=== PATIENT | female | born 1955 | race Caucasian/White ===

== ENCOUNTER 2019-03-04 12:41 | Emergency (ER) | payer BC ==
[~2019-03-04] VITALS: Ht 149.9 cm; Wt 76.7 kg
[2019-03-04 13:29] VITALS: Ht 149.9 cm; Wt 76.7 kg
[2019-03-04 14:03] LABS: microscopic required? NO
[2019-03-04 14:14] LABS: BASOPHIL % 1.1 % (0-2); PLATELET COUNT 266 x10^3mcL (130-400)
[2019-03-04 14:16] LABS: urine erythrocyte NEGATIVE (NEGATIVE)
[2019-03-04 14:33] LABS: RED CELL DISTRIBUTION WIDTH 14.8 % (11.5-14.5)
[2019-03-04 14:48] LABS: CALCIUM 8.6 mg/dL (8.5-10.1); CARBON DIOXIDE 27.3 mmol/L (21-32); CHLORIDE SERUM 109 mmol/L (98-107); CREATININE SERUM 0.6 mg/dL (0.6-1.0); GFR1 > 60 mL/min; GLUCOSE SERUM 97 mg/dL (74-106); POTASSIUM SERUM 3.9 mmol/L (3.5-5.1); SODIUM SERUM 146 mmol/L (136-145)
[2019-03-04 14:50] LABS: ALBUMIN 3.6 g/dL (3.4-5.0); ALKALINE PHOSPHATASE 77 U/L (46-116); ALT/SGPT 53 U/L (14-59); AST/SGOT 30 U/L (15-37); BILIRUBIN DIRECT 0.07 mg/dL (0.0-0.2); BILIRUBIN TOTAL 0.3 mg/dL (0.20-1.00); LIPASE 132 IU/L (73-393); TOTAL PROTEIN, SERUM 7.1 g/dL (6.4-8.2)
[2019-03-04 16:30] VITALS: BP 148/71
== END 2019-03-04 16:30 | disposition home or self-care (01) ==
LOC: ED 12:41
PROVIDERS: Student in an Organized Health Care Education/Training Program
DX: R10.812 Left upper quadrant abdominal tenderness (principal); R11.0 Nausea; Z90.49 Acquired absence of other specified parts of digestive tract
CPT/HCPCS: J2270; J2405; J7030

== ENCOUNTER 2020-01-12 20:14 | Emergency (ER) | payer OTHER, SELFPAY ==
[~2020-01-12] VITALS: Ht 154.9 cm; Wt 64.9 kg
[2020-01-12 20:18] VITALS: Ht 154.9 cm; Wt 64.9 kg
[2020-01-12 22:21] LABS: BASOPHIL % 0.4 % (0-2); PLATELET COUNT 208 x10^3mcL (130-400); RED CELL DISTRIBUTION WIDTH 13.3 % (11.5-14.5)
[2020-01-12 22:33] LABS: CALCIUM 8.4 mg/dL (8.5-10.1); CARBON DIOXIDE 25.4 mmol/L (21-32); CHLORIDE SERUM 103 mmol/L (98-107); CREATININE SERUM 0.7 mg/dL (0.6-1.0); GFR1 > 60 mL/min; GLUCOSE SERUM 123 mg/dL (74-106); POTASSIUM SERUM 3.7 mmol/L (3.5-5.1); SODIUM SERUM 139 mmol/L (136-145)
[2020-01-12 22:40] LABS: ALKALINE PHOSPHATASE 76 U/L (46-116); ALT/SGPT 52 U/L (14-59); AST/SGOT 53 U/L (15-37); BILIRUBIN TOTAL 0.3 mg/dL (0.20-1.00); TOTAL PROTEIN, SERUM 7.3 g/dL (6.4-8.2)
[2020-01-12 22:43] LABS: ALBUMIN 3.1 g/dL (3.4-5.0)
[2020-01-12 23:51] VITALS: BP 120/56
== END 2020-01-12 23:51 | disposition home or self-care (01) ==
LOC: ED 20:14
PROVIDERS: Emergency Medicine
DX: U07.1 COVID-19 (principal); J12.89 Other viral pneumonia; Z90.49 Acquired absence of other specified parts of digestive tract
CPT/HCPCS: 83880; Q0092; U0003-CS

== ENCOUNTER 2020-01-16 15:30 | Inpatient (IN) | payer OTHER, SELFPAY ==
[~2020-01-16] VITALS: Ht 157.5 cm; Wt 70.1 kg
--- NOTE | 2020-01-16 15:54 | NUR ---
FLO IN BY AMBULANCE,,STATED SON POSITIVE LOMBARDO VIRUS,WAS HERE ON 01/11,TESTED FOR LOMBARDO ,RESULT POSITIVE, C/O SOB ,COUGH YELLOWISH SECRETIONS, NAUSEA,
[2020-01-16 17:27] LABS: CALCIUM 8.3 mg/dL (8.5-10.1); CARBON DIOXIDE 29.6 mmol/L (21-32); CHLORIDE SERUM 102 mmol/L (98-107); CREATININE SERUM 0.8 mg/dL (0.6-1.0); GFR1 > 60 mL/min; GLUCOSE SERUM 95 mg/dL (74-106); POTASSIUM SERUM 3.5 mmol/L (3.5-5.1); SODIUM SERUM 139 mmol/L (136-145)
[2020-01-16 17:39] LABS: ALKALINE PHOSPHATASE 68 U/L (46-116); ALT/SGPT 60 U/L (14-59); AST/SGOT 62 U/L (15-37); BILIRUBIN TOTAL 0.4 mg/dL (0.20-1.00); C REACTIVE PROTEIN 11.6 mg/dL (<=0.9); LACTIC DEHYDROGENASE (LDH) 552 U/L (100-190)
[2020-01-16 17:43] LABS: ALBUMIN 2.5 g/dL (3.4-5.0)
[2020-01-16 17:56] LABS: BASOPHIL % 0.1 % (0-2); PLATELET COUNT 326 x10^3mcL (130-400); RED CELL DISTRIBUTION WIDTH 12.4 % (11.5-14.5)
--- NOTE | 2020-01-16 18:00 | NUR ---
PT AWAKE, ALERT, RESP E/U. PT CONTINUES TO COMPLAIN THAT SHE FEELS TIRED.
[2020-01-16 18:52] LABS: FREE T4 1.67 ng/dL (0.76-1.46); FREE THYROXINE INDEX 3.8 ug/dL (1.4-4.5); T3 TOTAL 1.08 ng/mL; T4(THYROXINE) 10.5 ug/dL (4.7-13.3)
--- NOTE | 2020-01-16 19:00 | NUR ---
RECEIVED PT FROM ED VIA AMBROSE, CAME IN DUE TO SOB, HEADACHE AND DECREASED APPETITE. AAOX4. C/O 01/26 HEADACHE. DENIES DIZZINESS. ABLE TO FOLLOW COMMANDS. SOB NOTED, O2 SAT=93% ON 4LPM/NC. STATED THAT SHE HAS PRODUCTIVE COUGH, ABLE TO EXPECTORATE WHITE PHLEGM IN LARGE AMOUNT. DENIES ABDOMINAL PAIN/NAUSEA/ VOMITING. STATED THAT HER LAST BM WAS ON 01/12/20. HAS DECREASED APPETITE SINCE MONDAY. VOIDS. IV SITE PATENT AND INTACT. AMBULATORY. ENDORSED TO INCOMING NURSE HAQ FOR CONTINUITY OF CARE
--- NOTE | 2020-01-16 19:05 | NUR ---
PT RECEIVED REPORT FOR PT FROM KEON BYRD. ENDORSED ALL CARE TO ART BYRD.
[2020-01-16 19:07] LABS: MAGNESIUM 2.2 mg/dL (1.8-2.4); PHOSPHOROUS 3.7 mg/dL (2.5-4.9)
[2020-01-16 19:08] LABS: CHOLESTEROL/HDL RATIO 3.5
[2020-01-16 19:10] VITALS: BP 123/67
[2020-01-16 19:25] VITALS: Ht 157.5 cm; Wt 70.1 kg
[2020-01-16 20:20] VITALS: BP 111/68
[2020-01-16 20:57] VITALS: BP 125/68
[2020-01-17 00:25] LABS: UA SPECIFIC GRAVITY 1.025 (1.005-1.035); microscopic required? YES; urine erythrocyte NEGATIVE (NEGATIVE)
[2020-01-17 05:26] VITALS: BP 132/64
--- NOTE | 2020-01-17 06:14 | NUR ---
PT HAD A RESTFUL NIGHT NO CHANGE AT THIS TIME,CALL LIGHT EASY REACHED,PT STILL ON 4L N/C SAT 92%,NO SOB,CALL LIGHT EASY REACHED AND WILL CONTINUR TO MONITOR.
[2020-01-17 06:48] LABS: BASOPHIL % 0.1 % (0-2); PLATELET COUNT 307 x10^3mcL (130-400); RED CELL DISTRIBUTION WIDTH 12.7 % (11.5-14.5)
--- NOTE | 2020-01-17 07:00 | NUR ---
RECEIVED PT FROM NIGHT RN. AAOX4, SPEECH CLEAR. DENIES KNIGHT/DIZZINESS. PRIMARILY BRUNEIAN SPEAKING. RES E/U, NO RESPIRATORY DISTRESS NOTED. DENIES SOB ON 4LPM NC. TELE MONITOR 31 SHOWING SR, DENIES CP/PRESSURE. PERIPHERAL PULSES PALPABLE W NO EDEMA NOTED. ABDOMEN SOFT. NO GI/ COMPLAINT. PT VOIDS IN BATHROOM WITHOUTH DIFFICULTY. AMBULATORY AT BASELINE. IV SITE TO SL, W NO S/S OF INFILTRATION NOTED. BED IN LOWEST POSITION, CALL LIGHT WITHIN REACH.
[2020-01-17 07:15] LABS: C REACTIVE PROTEIN 10.8 mg/dL (<=0.9); CALCIUM 8.2 mg/dL (8.5-10.1); CARBON DIOXIDE 27.1 mmol/L (21-32); CHLORIDE SERUM 105 mmol/L (98-107); CREATININE SERUM 0.6 mg/dL (0.6-1.0); GFR1 > 60 mL/min; GLUCOSE SERUM 92 mg/dL (74-106); MAGNESIUM 2.1 mg/dL (1.8-2.4); PHOSPHOROUS 3.3 mg/dL (2.5-4.9); POTASSIUM SERUM 3.8 mmol/L (3.5-5.1); SODIUM SERUM 140 mmol/L (136-145)
[2020-01-17 08:53] VITALS: BP 104/52
[2020-01-17 09:42] LABS: ERYTHROCYTE SED RATE 92 mm/hr (0-30)
[2020-01-17 11:33] VITALS: BP 124/69
--- NOTE | 2020-01-17 13:39 | NUR ---
PAINT MIXER HAND REPORTS PT'S O2 DESATTED TO 85%, COMPLAINING OF SOB AND DIZZINESS. PAINT MIXER HAND ASSISTED PT BACK IN BED. O2 SAT 92% ON 4LPM NC. ALSO, A BSC WAS PLACED AT BEDSIDE.
[2020-01-17 16:35] VITALS: BP 145/73
--- NOTE | 2020-01-17 18:51 | NUR ---
PT RESTING IN BED WITHOUT APPARENT DISTRESS. SEMI COSME'S POSITION. NO SIGNIFICANT CHANGES NOTED. PT DENIES SOB AND DIZZINESS AT THIS TIME. WILL ENDORSE CARE TO NEXT SHIFT.
--- NOTE | 2020-01-17 20:00 | NUR ---
RECEIVED PT FROM AM NURSE. PT AA/O X 4 ABLE TO MAKE NEEDS KNOWN, DENIES HEADACHE/ DENIES DIZZINESS, NO FACIAL DROOP. TELE MONITOR #31, NSR, HR @ 61 BPM. DENIES CHEST PAIN/ CHEST PRESSURE. PULSES PALPABLE, NO EDEMA. LUNG SOUNDS DIMINISHED BLL. PT ON OXYGEN, 4 LPM VIA NC, O2 SAT 90-91%. DENIES SOB, RESPIRATIONS EVEN AND UNLABORED. ACTIVE BS X 4 QUADS, ABD SOFT AND NON DISTENDED, NON TENDER. DENIES N/V/D. VOIDS FREELY. PT AMBULATORY, ABLE TO MOVE ALL EXTREMITIES. SKIN INTACT. DENIES PAIN AT THIS TIME. IV SITE TO RH INTACT, NO ERYTHEMA, NO INFILTRATION, SL. NO CONCERNS AT THIS TIME. CALL LIGHT WITHIN REACH, WILL CONTINUE TO MONITOR.
[2020-01-17 21:27] VITALS: BP 135/54
--- NOTE | 2020-01-18 00:17 | NUR ---
PT IN BED RESTING WITH EYES CLOSED, BUT EASILY AROUSABLE. ALL IV ANTIBIOTICS GIVEN ORDERED. RESPIRATIONS EVEN AND UNLABORED, NO RESPIRATORY DISTRESS. DENIES PAIN AT THIS TIME. DROPLET/ CONTACT PRECAUTIONS IN PLACE. NO ACUTE DISTRESS AT THIS TIME. CALL BUTTON WITHIN REACH, WILL CONTINUE TO MONITOR.
--- NOTE | 2020-01-18 05:19 | NUR ---
PT SLEPT IN INTERVALS THROUGHOUT THE NIGHT, BUT EASILY AROUSABLE. RESPIRATIONS E/U, NO RESPIRATORY DISTRESS AT THIS TIME. NO ACUTE CHANGES OVERNIGHT. PT RESTING IN BED AT THIS TIME, WILL ENDORSE CARE TO AM NURSE.
[2020-01-18 05:48] VITALS: BP 136/63
--- NOTE | 2020-01-18 07:05 | NUR ---
RECEIVED PT FROM NIGHT RN. PT RESTING IN BED, AAOX4. DENIES KNIGHT/DIZZINESS. SPEECH CLEAR. TELE MONITOR 31, SHOWING SR. HR IN 50'S, DENIES CP/PRESSURE. RES E/U, NO RESPIRATORY DISTRESS NOTED. ON 4 LPM NC. DENIES SOB. ABDOMEN SOFT. DENIES N/V/D/C. VOIDS WITHOUT DIFFICULT. NO GI/ COMPLAINT. PERIPHERAL PULSES PALPABLE W NO EDEMA NOTED. IV SITE TO , SL W NO S/S OF INFILTRATION NOTED. BED IN LOWEST POSITION, CALL LIGHT WITHIN REACH. WILL CONTINUE TO MONITOR.
[2020-01-18 08:40] LABS: C REACTIVE PROTEIN 7.5 mg/dL (<=0.9); CALCIUM 8.5 mg/dL (8.5-10.1); CARBON DIOXIDE 27.5 mmol/L (21-32); CHLORIDE SERUM 103 mmol/L (98-107); CREATININE SERUM 0.7 mg/dL (0.6-1.0); GFR1 > 60 mL/min; GLUCOSE SERUM 116 mg/dL (74-106); MAGNESIUM 2.2 mg/dL (1.8-2.4); PHOSPHOROUS 3.6 mg/dL (2.5-4.9); POTASSIUM SERUM 3.6 mmol/L (3.5-5.1); SODIUM SERUM 139 mmol/L (136-145)
[2020-01-18 08:48] VITALS: BP 115/67
--- NOTE | 2020-01-18 09:12 | NUR ---
PT C/O PAIN, GIVEN NORCO PER EMAR
--- NOTE | 2020-01-18 09:30 | NUR ---
AT 0800 - FILL TECHNICIAN REPORTS THAT O2 SAT SUSTAINING AT 85-89% AND RT INCREASED O2 TO 6 LPM NC. AT 0930 - EDUCATED PT LAYING SUPINE AND NOT MOVING THROUGHOUT THE DAY WILL WORSEN HER CONDITION. ENCOURAGED PT TO SIT ON CHAIR DURING MEALS AND TO AMBULATE TOLERATED. PT VERBALIZED UNDERSTANDING AND ASSISTED PT TO SIT ON CHAIR. O2 SAT 95% ON 6 LPM NC, DECREASED O2 TO 4 LPM. O2 SAT 93%. NO RESPIRATORY DISTRESS NOTED.
[2020-01-18 11:11] LABS: BASOPHIL % 0.2 % (0-2); PLATELET COUNT 337 x10^3mcL (130-400)
[2020-01-18 12:33] VITALS: BP 132/64
--- NOTE | 2020-01-18 12:40 | NUR ---
PT SITTING ON CHAIR WATCHING TV. NO ACUTE DISTRESS NOTED. O2 SAT 95% ON 4 LPM NC. ASSISTED PATIENT BACK IN BED FOR LUNCH TIME. POSITIONED PATIENT IN HIGH COSME'S POSITION AND ENCUORAGED PT TO AMBULATE TOLERATED. PT VERBALIZED UNDERSTANDING.
--- NOTE | 2020-01-18 13:36 | NUR ---
Continue regular diet, as tolerated.
--- NOTE | 2020-01-18 13:36 | NUR ---
Initial Nutrition Assessment- Landy Zamudio RM#[id number] Dx: bilateral PNA, hypoxemia, COVID+ PMHx: none PSHx: cholecystectomy Labs: Glu: 116H, albumin: 2.5L Meds: Colace, decadron, Mucinex, norco, Rocephin, Tylenol, Ventolin, Zithromax, Zofran, heparin sodium Diet: regular PO Intakes: No nutrition flowsheets available, eating well per nursing Ht: 62 inches, 5 ft 2 inch Wt: 70.052 kg/154.1 lbs BMI: 28.2 IBW: 110 lbs %IBW: 71% UBW: unknown Age: 64 Food Allergies: NKFA Skin: intact Laz: 21 Edema: no edema GI: ABD soft with active bowel sounds, last BM 01/12/2020 RD Note (01/18/20): per H&P- pt presented with 1-week SOB, headache and fever, pt was seen in the ED last Monday for the same reason, tested + for COVID-19 on 01/12/2020, per nursing assessment no respiratory distress- 4 LPM on NC, denies SOB Problem with: N/V/D/C: none per pt's primary nurse Problems with: Chewing/Swallowing: none Current appetite: good, tolerating diet well per nursing Recent wt changes: unknown %wt change: unknown Vitamin/Supplement: unknown Special Diet at Home: none, regular diet Physical activity: unknown Education: Nutrition education not needed at this time Estimated Nutritional Needs Based on IBW of110 lbs/50 kg Energy: 1500- 1750 kcal/day (30-35 kcal/kg for PNA, infection) Protein: 55- 65 g/day (1.1-1.3 g/kg for PNA, infection) Fluid: 4200-0141 mL/day (30-35 mL/kg) Nutrition Diagnosis Increased nutrient needs (energy, protein) related to PNA, Infection as evidenced by + COVID test on 01/12/2020 Intervention/RDN Recommendation(s): continue regular diet as tolerated. Goal: have pt meet at least 75% of estimated nutrient needs (met, ongoing) Monitor: PO intake, Labs, Skin integrity, Weights F/U LR on 01/25/20
[2020-01-18 15:33] LABS: ALT/SGPT 42 U/L (14-59); AST/SGOT 28 U/L (15-37)
[2020-01-18 17:16] VITALS: BP 99/66
--- NOTE | 2020-01-18 18:05 | NUR ---
ENCOURAGED AND ASSISTED PT TO SIT ON CHAIR FOR DINNER. NO ACUTE DISTRESS NOTED. O2 SAT 92% ON 4 LPM NC. RES E/U
--- NOTE | 2020-01-18 18:50 | NUR ---
PT SITTING ON CHAIR USING PERSONAL PHONE. NO ACUTE DISTRESS NOTED. NO SIGNIFICANT CHANGES NOTED. WILL ENDORSE CARE TO NEXT SHIFT
--- NOTE | 2020-01-18 19:30 | NUR ---
RECEIVED PT FROM AM NURSE, SITTING IN BED WATCHING TELEVISION. AA/O X 4, ABLE TO MAKE NEEDS KNOWN, DENIES HEADACHE/ DIZZINESS. TELE MONITOR #31, NSR, DENIES CHEST PAIN/ CHEST PRESSURE. PULSES PALPABLE, NO EDEMA. RESPIRATIONS EVEN AND SLIGHTLY LABORED. PT ON O2 4.5 LPM VIA NC, O2 SAT 93-94%. DENIES SOB, NO RESPIRATORY DISTRESS. ACTIVE BS X 4 QUADS, ABD SOFT, NON DISTENDED. DENIES N/V/D. VOIDS USING BSC. DENIES PAIN. IV TO RFA INTACT, NO ERYTHEMA/ NO INFILTRATION. DENIES PAIN. ON DROPLET PRECAUTIONS FOR POSTIIVE COVID-19 STATUS, PROPER PPE WORN BY ALL STAFF. CALL LIGHT WITHIN REACH, WILL CONTINUE TO MONITOR.
[2020-01-18 21:48] VITALS: BP 98/69
--- NOTE | 2020-01-19 00:03 | NUR ---
PT RESTING IN BED WITH EYES CLOSED, BUT EASILY AROUSABLE. RESPIRATIONS E/U, STILL ON 4.5 LPM O2 VIA NC, O2 SAT 92%. DENIES PAIN AT THIS TIME. NO ACUTE DISTRESS. IV ANTIBIOTICS GIVEN PER ORDER. CALL LIGHT WITHIN REACH, WILL CONTINUE TO MONITOR.
[2020-01-19 06:00] VITALS: BP 117/51
--- NOTE | 2020-01-19 06:49 | NUR ---
PT SLEPT IN INTERVALS THROUGHOUT THE SHIFT BUT EASILY AROUSABLE. DENIES PAIN/ SOB AT THIS TIME. PT REMAINS ON 4 LPM O2 VIA NC. NO ACUTE CHANGES OVERNIGHT. CARE WILL BE ENDORSED TO AM NURSE.
--- NOTE | 2020-01-19 07:05 | NUR ---
RECEIVED PT FROM NIGHT RN. NO SIGNIFICANT CHANGES PER REPORT. PT RESTING IN BED W EYES CLOSED BUT EASILY AROUSABLE. NO ACUTE DISTRESS NOTED. AAOX4. DENIES KNIGHT/DIZZINESS. RES E/U, O2 SAT 92% ON 4 LPM NC. DENIES SOB. ENCOURAGED PT TO AMBULATE. PT VERBALIZED UNDERSTANDING. TELE MONITOR 12 SHOWING SR, DENIES CP/PRESSURE. ABDOMEN SOFT. PT C/O CONSTIPATION PER REPORT. OTHERWISE, NO GI/ COMPLAINT. IV SITE TO RFA SL, W NO S/S OF INFILTRATION. SAFETY PRECAUTIONS IN PLACE. WILL CONTINUE TO MONITOR.
[2020-01-19 08:36] LABS: CALCIUM 8.4 mg/dL (8.5-10.1); CARBON DIOXIDE 30.1 mmol/L (21-32); CHLORIDE SERUM 103 mmol/L (98-107); CREATININE SERUM 0.6 mg/dL (0.6-1.0); GFR1 > 60 mL/min; GLUCOSE SERUM 87 mg/dL (74-106); MAGNESIUM 2.1 mg/dL (1.8-2.4); PHOSPHOROUS 3.5 mg/dL (2.5-4.9); POTASSIUM SERUM 3.5 mmol/L (3.5-5.1); SODIUM SERUM 137 mmol/L (136-145)
[2020-01-19 08:40] VITALS: BP 101/55
[2020-01-19 09:01] LABS: BASOPHIL % 0.2 % (0-2); PLATELET COUNT 353 x10^3mcL (130-400); RED CELL DISTRIBUTION WIDTH 13.2 % (11.5-14.5)
--- NOTE | 2020-01-19 11:33 | NUR ---
PT RESTING IN BED WITHOUT ACUTE DISTRESS. RES E/U, DENIES SOB. O2 SAT 95% ON 4 LPM NC. DECREASED O2 TO 3 LPM AND O2 SAT SUSTAINED AT 92%
[2020-01-19 13:51] VITALS: BP 106/46
--- NOTE | 2020-01-19 15:19 | NUR ---
DR JACOBO MADE AWARE PT HASNT HAD A BM IN 4 DAYS. ORDERED LACTULOSE
[2020-01-19 16:53] VITALS: BP 93/67
--- NOTE | 2020-01-19 18:40 | NUR ---
PT RESTING IN BED WITHOUT APPARENT DISTRESS. PT REPORTS HAVING 2 BM TODAY AND STATES FEELING BETTER. NO SIGNIFICANT CHANGES NOTED. WILL ENDORSE CARE TO NEXT SHIFT
--- NOTE | 2020-01-19 19:45 | NUR ---
RECEIVED PT FROM AM NURSE, PT SITTING UP IN BED WATCHING TELEVISION. AA/O X 4, ABLE TO MAKE NEEDS KNOWN, CLEAR SPEECH, DENIES HEADACHE/ DENIES DIZZINESS. TELE MONITOR #31, NSR, DENIES CHEST PAIN, CHEST PRESSURE. PULSES PALPABLE, NO EDEMA. PT ON O2 3 LPM VIA NC, RESPIRATIONS E/U. DENIES SOB. SPO2 AT 94-96%. ACTIVE BS X 4 QUADS, ABD SOFT AND NON TENDER/ NON DISTENDED. PT STATED SHE HAD 2 BM'S TODAY AND FEELS MUCH RELIEF. PT VOIDS USING BSC. SKIN INTACT. IV TO RFA INTACT, NO ERYTHEMA, NO INFILTRATION. DENIES PAIN AT THIS TIME, ALL CONCERNS ADDRESSED, CALL BUTTON WITHIN REACH, WILL CONTINUE TO MONITOR.
[2020-01-19 20:30] VITALS: BP 108/42
--- NOTE | 2020-01-20 00:10 | NUR ---
PT RESTING IN BED WITH EYES CLOSED, BUT EASILY AROUSABLE. IV ANTIBIOTICS GIVEN PER ORDER, COMPLETED AND IV SL. RESPIRATIONS EVEN AND UNLABORED ON O2 3 LPM VIA NC, SPO2 AT 95%. DENIES PAIN AT THIS TIME. REQUESTED ROOM TEMP WATER AT THIS TIME, PROVIDED. NO CONCERNS AT THIS TIME, CALL BUTTON WITHIN REACH, WILL CONTINUE TO MONITOR.
[2020-01-20 05:46] VITALS: BP 122/49
--- NOTE | 2020-01-20 05:46 | NUR ---
PT SLEPT IN INTERVALS THROUGHOUT THE NIGHT, BUT EASILY AROUSABLE. RESPIRATIONS E/U ON 3 LPM O2 VIA NC. SPO2 RANGED BETWEEN 93-97% THROUGHOUT THE SHIFT. NO ACUTE CHANGES OVERNIGHT. ALL CONCERNS ADDRESSED. CALL LIGHT WITHIN REACH, CARE WILL BE ENDORSED TO AM NURSE.
[2020-01-20 07:44] LABS: BASOPHIL % 0.4 % (0-2); RED CELL DISTRIBUTION WIDTH 13.7 % (11.5-14.5)
[2020-01-20 08:00] LABS: C REACTIVE PROTEIN 2.1 mg/dL (<=0.9); CALCIUM 8.4 mg/dL (8.5-10.1); CARBON DIOXIDE 28.8 mmol/L (21-32); CHLORIDE SERUM 105 mmol/L (98-107); CREATININE SERUM 0.7 mg/dL (0.6-1.0); GFR1 > 60 mL/min; GLUCOSE SERUM 86 mg/dL (74-106); POTASSIUM SERUM 3.7 mmol/L (3.5-5.1); SODIUM SERUM 141 mmol/L (136-145)
[2020-01-20 08:09] VITALS: BP 129/53
[2020-01-20 08:34] LABS: PLATELET COUNT 410 x10^3mcL (130-400)
--- NOTE | 2020-01-20 10:18 | NUR ---
PATIENT IS AOX4, SR, RESPIRATIONS EVEN AND UNLABORED ON 3L NC. DENIES SHORTNESS OF BREATH/CHEST PAIN. HAD A BM TODAY. WILL BE EVALUATED FOR HOME O2 THERAPY. WILL CONTINUE TO MONITOR.
[2020-01-20 11:03] LABS: ERYTHROCYTE SED RATE 56 mm/hr (0-30)
[2020-01-20 12:30] VITALS: BP 119/64
--- NOTE | 2020-01-20 13:13 | NUR ---
PATIENT ATE LUNCH, DENIES SHORTNESS OF BREATH/DYSPNEA, NO CHANGES IN ASSESSMENT SINCE THIS MORNING. ON 2L NASAL CANNULA 95% RESTING COMFORTABLY IN BED. WILL CONTINUE TO MONITOR.
[2020-01-20 16:54] VITALS: BP 116/53
--- NOTE | 2020-01-20 17:38 | NUR ---
PATIENT IS SITTING UP IN BED EATING DINNER. DENIES SHORTNESS OF BREATH/CHEST PAIN. SPO2 94% ON NASAL CANNULA 2L. NO OTHER COMPLAINTS AT THIS TIME. VITAL SIGNS STABLE. FALL PRECAUTIONS IN PLACE. WILL ENDORSE TO NIGHT RN.
--- NOTE | 2020-01-20 19:45 | NUR ---
RECEIVED PATIENT REPORT. PATIENT IS AAOX4, DENIES KNIGHT/DIZZINESS. UNLABORED BREATHING ON NC 2L/MIN, PATIENT REPORTS PRODUCTIVE COUGH. TELE #31 SR HR 63, DENIES CHEST PAIN. PATIENT USES BSC. NO EDEMA NOTED, PALPABLE PULSES. ALL SAFETY PRECAUTIONS IN PLACE. WILL MONITOR.
[2020-01-20 21:15] VITALS: BP 112/45
--- NOTE | 2020-01-21 05:58 | NUR ---
PATIENT SLEPT MOST OF THE NIGHT WITH NO ACUTE DISTRESS NOTED .IV PATENT FLUSHED WELL SL. PATIENT ABLE TO USE BSC, VOIDS FREELY. PATINET CONTINUE TO BE ON NC 2L/MIN WITH O2SAT OF 95% NO RESP DISTRESS. PATIENT DENIES PAIN. ALL NEEDS MET. MEDICATED PER EMAR. SAFETY PRECAUTIONS IN PLACE. WILL MONITOR.
[2020-01-21 06:45] VITALS: BP 130/48
--- NOTE | 2020-01-21 07:18 | NUR ---
RECEIVED PATIENT FROM CLAY MODELER NURSE AOX4, TELE 31, NSR, NO KNIGHT/DIZZINESS, NO SOB OR CHEST P,O2 AT 2LPM VIA NC, 96% O2 SAT, +BS, VOIDS WITH NO DYSURIA, GENERALIZED WEAKNESS, SKIN DRY AND INTACT, NO PAIN AT THIS TIME, IV INTACT AND PATENT, NO REDNESS OR SWELLING TO RFA. CALL LIGHT WITHIN REACH, BED AT LOWEST POSITION ,SIDE RAILS UP.
--- NOTE | 2020-01-21 07:20 | NUR ---
PATIENT IN NO ACUTE DISTRESS. ENDORSED CARE TO JOSE BYRD, ALL QUESTIONS ADDRESSED.
[2020-01-21 08:15] VITALS: BP 113/73
--- NOTE | 2020-01-21 08:50 | NUR ---
MEDICATIONS GIVEN PER EMAR
[2020-01-21 09:30] LABS: CALCIUM 8.6 mg/dL (8.5-10.1); CHLORIDE SERUM 107 mmol/L (98-107); CREATININE SERUM 0.7 mg/dL (0.6-1.0); GFR1 > 60 mL/min; GLUCOSE SERUM 137 mg/dL (74-106); MAGNESIUM 2.2 mg/dL (1.8-2.4); POTASSIUM SERUM 3.3 mmol/L (3.5-5.1); SODIUM SERUM 139 mmol/L (136-145)
[2020-01-21 09:54] LABS: BASOPHIL % 0.3 % (0-2); RED CELL DISTRIBUTION WIDTH 13.4 % (11.5-14.5)
[2020-01-21 09:57] LABS: PLATELET COUNT 409 x10^3mcL (130-400)
--- NOTE | 2020-01-21 10:17 | NUR ---
K 3.3. JAMES GARNETT MADE AWARE
--- NOTE | 2020-01-21 10:19 | NUR ---
HEPARIN SQ GIVEN
--- NOTE | 2020-01-21 11:24 | NUR ---
MEDICATIONS GIVEN PER EMAR.
[2020-01-21 12:00] VITALS: BP 130/70
[2020-01-21 16:15] VITALS: BP 106/54
--- NOTE | 2020-01-21 18:35 | NUR ---
SEEN PATIENT, NOT IN DISTRESS, NO SUBJECTIVE COMPLAINTS. NEEDS MET.
--- NOTE | 2020-01-21 19:15 | NUR ---
RECEIVED BEDSIDE REPORT FROM RN. PT AOX4 ABLDE TO MAKE NEEDS KNOWN. DROPLET PRECAUTIONS FOR COVID. RR EVEN AND UNLABORED ON 2L NC. TELE#31. CALL LIGHT WITHIN REACH. BED LOCKED IN LOWEST POSITION. WILL CONITNUE TO MONITOR.
[2020-01-21 21:20] VITALS: BP 101/48
--- NOTE | 2020-01-22 00:05 | NUR ---
PT ASLEEP IN BED WITH EYES CLOSED. EASILY AROUSABLE. NO ACUTE DISTRESS. RR EVEN AND UNLABORED ON 2L NC. HOB ELEVATED. BED RAILS UPX2. CALL LIGHT WITHIN REACH. BED LCOKED IN LOWEST POSITION. WILL CONTINUE TO MONITOR.
[2020-01-22 06:02] VITALS: BP 91/52
[2020-01-22 06:43] LABS: BASOPHIL % 0.4 % (0-2); RED CELL DISTRIBUTION WIDTH 13.2 % (11.5-14.5)
[2020-01-22 06:50] LABS: PLATELET COUNT 452 x10^3mcL (130-400)
[2020-01-22 06:58] LABS: C REACTIVE PROTEIN 0.8 mg/dL (<=0.9); CALCIUM 8.6 mg/dL (8.5-10.1); CARBON DIOXIDE 25.2 mmol/L (21-32); CHLORIDE SERUM 104 mmol/L (98-107); CREATININE SERUM 0.7 mg/dL (0.6-1.0); GFR1 > 60 mL/min; GLUCOSE SERUM 89 mg/dL (74-106); POTASSIUM SERUM 4.3 mmol/L (3.5-5.1); SODIUM SERUM 140 mmol/L (136-145)
--- NOTE | 2020-01-22 07:23 | NUR ---
ENDORSED CARE TO DAY SHIFT RN.
--- NOTE | 2020-01-22 08:00 | NUR ---
RECEIVED PATIENT ALERT AND ORIENTED TIMES FOUR. IV INTACT AND HEPLOCKED AT THIS TIME PATIENT WITHOUT COMPLAINTS OF PAIN AT THIS TIME AND NOTED DRY COUGH AND SOME MILD SOB ON EXCERTION. SHE HAS BEEN WITH VITALS AT THIS TIME AT 98.6, 54, 18, 91/52, 95% ON 02 VIA 2 LITERS. PATIENT HAS BEEN NOTED WITH PULMONARY INFILTRATE AND HAS BEEN ON NASAL CANULA AND TOLERATED WELL. SHE DENIES ACUTE SOB OR DISTRESS AT THIS TIME. NOTED LABS ARE THE PLT AT 452. PATIENT HAS BEEN ON DECADRON, ROCEPHINE, ZITHROMAX AND NO ADVERSE REACTION HAS BEEN NOTED. PATIEN TAHS DIMINISHED BREATH SOUNDS AND SOME FINE RALES TO THE UPPER LOBES AND GRUNTING NOTED WITH ASCULTATION.
[2020-01-22 09:23] VITALS: BP 92/41
[2020-01-22] MEDS ORDERED: ASPIRIN CHILDRE81 MG PO (10:39)
[2020-01-22] MEDS ORDERED: MUCINEX600 MG PO (10:40)
[2020-01-22] MEDS ORDERED: ZITHROMAX TRI-500 MG PO (10:40)
[2020-01-22] MEDS ORDERED: DECADRON6 MG PO (10:42)
[2020-01-22 11:54] VITALS: BP 92/42
--- NOTE | 2020-01-22 13:00 | NUR ---
PATIENT TOLERATED BREAKFAST AND LUNCH AND DENIES ANY PAIN AT THIS TIME. PLAN IS FOR DISCHARGE HOME TODAY. AWAITING ORDERS AT THIS TIME.
--- NOTE | 2020-01-22 13:30 | NUR ---
PATIENT SEEN BY THE PHYSICAL THERAPY AND HAS BEEN OOB AND REMOVED THE IV AND TELE FOR DISCHARGE HOME GAVE ALL PAPERWORK AND PATIENT IS TO GO HOME WITH 02 TANK BROUGHT IN FOR HER. SHE HAS TO AWAIT FAMILY FOR AIR TWIST OPERATOR. MASKS SUPPLIED RENZO MONTEMAYORT IS IN NO ACUTE DISTRESS AT THIS TIME.
[2020-01-22 14:02] VITALS: BP 99/51
--- NOTE | 2020-01-22 16:49 | NUR ---
WHEN PATIEN DID NOT HAVE FAMILY COME STAFF CALLED FOR THEATRICAL SCENIC DESIGNER. DISCHARGED TO HOME WITH 02 TANK AND MASK SUPPLY.
== END 2020-01-22 16:55 | disposition home or self-care (01) | DRG 177 ==
LOC: ED 15:30 → DU 17:22
PROVIDERS: Emergency Medicine; Family Medicine; ADMIT Internal Medicine; ATTEND Internal Medicine
DX: U07.1 COVID-19 (principal); J12.89 Other viral pneumonia; J96.01 Acute respiratory failure with hypoxia; E43 Unspecified severe protein-calorie malnutrition; R74.0 Nonspecific elevation of levels of transaminase and lactic acid dehydrogenase [LDH]; E83.51 Hypocalcemia; Z79.01 Long term (current) use of anticoagulants; Z68.28 Body mass index [BMI] 28.0-28.9, adult; Z90.49 Acquired absence of other specified parts of digestive tract
CPT/HCPCS: 36600; 83880; 84439; 87804; G0378; J0456; J0696; J1100; J1644; J3535; J7050; Q0092